=== PATIENT | male | born 1975 | race Caucasian/White ===

== ENCOUNTER 2018-05-05 11:40 | Day surgery (SDC) | payer OTHER ==
[2018-05-05] MEDS ORDERED: PROPOFOL 20 ML (12:56)
[2018-05-05] MEDS ORDERED: ETOMIDATE 20 MG INJ (12:56)
[2018-05-05] MEDS ORDERED: FENTAnyl 50 MCG/ML VIAL (12:56)
== END 2018-05-05 14:03 | disposition home or self-care (01) ==
LOC: GIL 11:40
DX: R12 Heartburn (principal); K44.9 Diaphragmatic hernia without obstruction or gangrene; K21.0 Gastro-esophageal reflux disease with esophagitis
CPT/HCPCS: 43239; 88305